=== PATIENT | female | born 1995 | race Two or more races ===

== ENCOUNTER 2023-03-27 09:01 | Outpatient (CLI) | payer OTHER | END 2023-03-27 12:09 | disposition home or self-care (01) | LOC: PRENATAL 09:01 | PROVIDERS: ATTEND Obstetrics & Gynecology Maternal & Fetal Medicine | DX: O35.3XX0 Maternal care for (suspected) damage to fetus from viral disease in mother, not applicable or unspecified (principal); O44.00 Complete placenta previa NOS or without hemorrhage, unspecified trimester; Z3A.20 20 weeks gestation of pregnancy ==

== ENCOUNTER 2023-05-17 14:41 | Inpatient (IN) | payer OTHER ==
[~2023-05-17] VITALS: Ht 167.6 cm; Wt 88.5 kg
[~2023-05-17 14:41] MED LIST: AZESCO TABLET1 EACH PO
[2023-05-17] MEDS ORDERED: FOLIC ACID1 MG PO (15:22)
[2023-05-17 15:49] LABS: PH,URINE 5.5 (5.0-8.0); URINE APPEARANCE Clear; URINE BILIRRUBIN Negative (NEGATIVE); URINE BLOOD Negative; URINE COLOR Yellow; URINE GLUCOSE Negative (NEGATIVE); URINE LEUKOCYTE Small; URINE NITRATE Negative; URINE UROBILINOGEN 0.2 E.U./dl
[2023-05-17 15:50] LABS: HEMATOCRIT 31.6 % (36.0-45.00); HEMOGLOBIN 10.7 g/dL (12.0-15.00); MEAN CELL VOLUME 84.1 fL (80.00-100.00); MEAN CORPUSCULAR HEMOGLOBIN 28.4 pg (27.00-32.0); MEAN CORPUSCULAR HGB CONC 33.8 g/dl (32.0-36.0); PLATELET COUNT 177 K/uL (150-450); RED BLOOD COUNT 3.76 M/uL (4.00-6.00); RED CELL DISTRIBUTION WIDTH 15.2 % (11.5-14.5); URINE EPITHELIAL CELLS 26.7 uL (0.0-38.8); URINE RBC 8.1 uL (0.0-20.8); URINE WBC 114.2 uL (0.0-23.2)
[2023-05-17 15:55] LABS: URINE PROTEIN 100 (NEGATIVE)
[2023-05-17 16:17] LABS: FIBRINOGEN 482 mg/dL (187.0-446.0); INR < 0.93; PARTIAL THROMBOPLASTIN TIME 23.6 SECONDS (22.0-34.0); PROTHROMBIN TIME 9.4 SECONDS (9.0-11.5)
[2023-05-17 16:20] LABS: ALBUMIN 2.3 gm/dL (3.4-5.0); BILIRUBIN TOTAL 0.11 mg/dL (0.3-1.2); CALCIUM 8.8 mg/dL (8.5-10.1); CREATININE SERUM 0.46 mg/dL (0.55-1.02); GFR 161.75; GLOBULINA 3.9 G/DL (2.4-3.5); POTASSIUM 4.27 mEq/L (3.5-5.1); TOTAL PROTEIN 6.2 gm/dL (6.4-8.2)
[2023-05-18 20:35] LABS: URINE PROT QUANT 24HR 71.5 MG/DL
[2023-05-19 10:53] LABS: HEMOGLOBIN 10.8 g/dL (12.0-15.00); MEAN CELL VOLUME 84.5 fL (80.00-100.00); MEAN CORPUSCULAR HEMOGLOBIN 28.4 pg (27.00-32.0); MEAN CORPUSCULAR HGB CONC 33.6 g/dl (32.0-36.0); PLATELET COUNT 180 K/uL (150-450); RED BLOOD COUNT 3.79 M/uL (4.00-6.00); RED CELL DISTRIBUTION WIDTH 15.6 % (11.5-14.5)
[2023-05-19 11:35] LABS: PH,URINE 5.5 (5.0-8.0); URINE APPEARANCE Cloudy; URINE BILIRRUBIN Negative (NEGATIVE); URINE BLOOD Negative; URINE COLOR Yellow; URINE GLUCOSE Negative (NEGATIVE); URINE LEUKOCYTE Small; URINE NITRATE Negative; URINE PROTEIN >=1000 (NEGATIVE); URINE UROBILINOGEN 0.2 E.U./dl
[2023-05-19 11:39] LABS: URINE EPITHELIAL CELLS 49.7 uL (0.0-38.8); URINE RBC 4.3 uL (0.0-20.8); URINE WBC 259.2 uL (0.0-23.2)
[2023-05-19 11:46] LABS: URIC ACID 5.9 mg/dL (2.5-7.5)
[2023-05-19 12:26] LABS: URINE YEAST MANY /hpf
[2023-05-20 18:11] LABS: HEMATOCRIT 32.2 % (36.0-45.00); HEMOGLOBIN 10.7 g/dL (12.0-15.00); MEAN CELL VOLUME 84.2 fL (80.00-100.00); MEAN CORPUSCULAR HEMOGLOBIN 27.9 pg (27.00-32.0); MEAN CORPUSCULAR HGB CONC 33.1 g/dl (32.0-36.0); PLATELET COUNT 145 K/uL (150-450); RED BLOOD COUNT 3.82 M/uL (4.00-6.00); RED CELL DISTRIBUTION WIDTH 15.6 % (11.5-14.5)
[2023-05-20 18:40] LABS: RH POSITIVE
[2023-05-20 18:48] LABS: ALBUMIN 2.3 gm/dL (3.4-5.0); BILIRUBIN TOTAL 0.33 mg/dL (0.3-1.2); CALCIUM 7.6 mg/dL (8.5-10.1); CREATININE SERUM 0.67 mg/dL (0.55-1.02); GFR 104.8; GLOBULINA 3.3 G/DL (2.4-3.5); POTASSIUM 4.06 mEq/L (3.5-5.1); TOTAL PROTEIN 5.6 gm/dL (6.4-8.2)
[2023-05-23 10:20] LABS: URINE APPEARANCE Clear; URINE BILIRRUBIN Negative (NEGATIVE); URINE BLOOD Trace; URINE COLOR Yellow; URINE GLUCOSE Negative (NEGATIVE); URINE LEUKOCYTE Trace; URINE NITRATE Negative; URINE PROTEIN Trace (NEGATIVE); URINE UROBILINOGEN 0.2 E.U./dl
[2023-05-23 10:23] LABS: URINE BACTERIA 93.2 uL (0.0-1933); URINE EPITHELIAL CELLS 4.9 uL (0.0-38.8); URINE RBC 6.8 uL (0.0-20.8); URINE WBC 2.6 uL (0.0-23.2)
[2023-05-23 10:30] LABS: HEMOGLOBIN 9.6 g/dL (12.0-15.00); MEAN CELL VOLUME 86.3 fL (80.00-100.00); MEAN CORPUSCULAR HEMOGLOBIN 28.5 pg (27.00-32.0); RED BLOOD COUNT 3.36 M/uL (4.00-6.00); RED CELL DISTRIBUTION WIDTH 15.7 % (11.5-14.5)
[2023-05-23 10:52] LABS: PLATELET COUNT 93 K/uL (150-450)
[2023-05-23 11:00] LABS: ALT/SGPT 201 U/L (12-78); AST/SGOT 45 U/L (15-37)
[2023-05-24 17:09] LABS: HEMATOCRIT 28.4 % (36.0-45.00); HEMOGLOBIN 9.2 g/dL (12.0-15.00); MEAN CELL VOLUME 86.1 fL (80.00-100.00); MEAN CORPUSCULAR HEMOGLOBIN 27.8 pg (27.00-32.0); MEAN CORPUSCULAR HGB CONC 32.3 g/dl (32.0-36.0); RED CELL DISTRIBUTION WIDTH 15.8 % (11.5-14.5)
[2023-05-24 17:10] LABS: PLATELET COUNT 91 K/uL (150-450)
[2023-05-24 17:21] LABS: ALT/SGPT 140 U/L (12-78); AST/SGOT 37 U/L (15-37)
== END 2023-05-26 13:54 | disposition home or self-care (01) | DRG 788 ==
LOC: NST 14:41 → OBS/DEL 14:41 → LDR 18:06 → OB/GYN 05-21 10:26
PROVIDERS: Obstetrics & Gynecology; Obstetrics & Gynecology Maternal & Fetal Medicine; ADMIT Obstetrics & Gynecology; ATTEND Obstetrics & Gynecology
PROC: 4A1HXCZ Monitoring of Products of Conception, Cardiac Rate, External Approach (ICD-10-PCS; 2023-05-17)
PROC: BY4CZZZ Ultrasonography of Second Trimester, Single Fetus (ICD-10-PCS; 2023-05-18)
PROC: B030ZZZ Magnetic Resonance Imaging (MRI) of Brain (ICD-10-PCS; 2023-05-20)
PROC: 10D00Z1 Extraction of Products of Conception, Low, Open Approach (ICD-10-PCS; principal; 2023-05-20 11:00)
DX: O14.14 Severe pre-eclampsia complicating childbirth (principal); O13.4 Gestational [pregnancy-induced] hypertension without significant proteinuria, complicating childbirth; O26.842 Uterine size-date discrepancy, second trimester; O36.8120 Decreased fetal movements, second trimester, not applicable or unspecified; Z3A.27 27 weeks gestation of pregnancy; O60.13X0 Preterm labor second trimester with preterm delivery third trimester, not applicable or unspecified; Z37.0 Single live birth; Z20.822 Contact with and (suspected) exposure to COVID-19; Z3A.28 28 weeks gestation of pregnancy
CPT/HCPCS: 70544

== ENCOUNTER 2023-05-29 21:16 | Emergency (ER) | payer OTHER ==
[~2023-05-29] VITALS: Ht 165.1 cm; Wt 74.8 kg
[~2023-05-29 21:16] MED LIST changes: +FOLIC ACID1 MG PO
[2023-05-29] MEDS ORDERED: NIFEDIPINE20 MG PO (21:25)
[2023-05-29] MEDS ORDERED: LABETALOL HCL100 MG (21:26)
[2023-05-29 22:09] LABS: HEMATOCRIT 33.2 % (36.0-45.00); MEAN CELL VOLUME 85.4 fL (80.00-100.00); MEAN CORPUSCULAR HEMOGLOBIN 28.3 pg (27.00-32.0); MEAN CORPUSCULAR HGB CONC 33.2 g/dl (32.0-36.0); PLATELET COUNT 229 K/uL (150-450); RED BLOOD COUNT 3.89 M/uL (4.00-6.00); RED CELL DISTRIBUTION WIDTH 16.5 % (11.5-14.5)
[2023-05-29 22:29] LABS: ALBUMIN 3.3 gm/dL (3.4-5.0); BILIRUBIN TOTAL 0.37 mg/dL (0.3-1.2); CALCIUM 9.1 mg/dL (8.5-10.1); CREATININE SERUM 0.66 mg/dL (0.55-1.02); GFR 106.64; GLOBULINA 4.3 G/DL (2.4-3.5); POTASSIUM 4.16 mEq/L (3.5-5.1); TOTAL PROTEIN 7.6 gm/dL (6.4-8.2)
[2023-05-29] MEDS ORDERED: PEPCID20 MG PO (23:36)
[2023-05-29] MEDS ORDERED: ONDANSETRON ODT8 MG PO (23:36)
== END 2023-05-29 23:44 | disposition home or self-care (01) ==
LOC: ER 21:17
PROVIDERS: General Practice
DX: O90.89 Other complications of the puerperium, not elsewhere classified (principal); R19.7 Diarrhea, unspecified; R11.2 Nausea with vomiting, unspecified